=== PATIENT | female | born 1990 | race Caucasian/White ===

== ENCOUNTER 2020-10-22 20:57 | Emergency (ER) | payer MEDICAID ==
[~2020-10-22] VITALS: Ht 177.8 cm; Wt 72.7 kg
[2020-10-22] MEDS ORDERED: DOXYCYCLINE HYCLATE 100 MG TABLET PO ONE (22:45)
[2020-10-22] MEDS ORDERED: CefTRIAXone SODIUM 1 GM/VIAL IM ONE (22:45)
[2020-10-22] MEDS ORDERED: LIDOCAINE/PF 1% 2 ML VIAL IM ONE (22:45)
[2020-10-22 23:35] VITALS: BP 127/79
== END 2020-10-22 23:40 | disposition home or self-care (01) ==
LOC: EMS 20:57
DX: T19.2XXA Foreign body in vulva and vagina, initial encounter (principal); N73.0 Acute parametritis and pelvic cellulitis; F17.210 Nicotine dependence, cigarettes, uncomplicated; X58.XXXA Exposure to other specified factors, initial encounter; Y93.89 Activity, other specified; Y92.89 Other specified places as the place of occurrence of the external cause; Y99.8 Other external cause status
CPT/HCPCS: 76856; 84703; 87491; 87591; 96372; 99284; J0696; J3490